=== PATIENT | male | born 1960 | race Caucasian/White ===

== ENCOUNTER → 2019-11-15 13:16 | Outpatient (CLI) | payer BC, SELFPAY ==
[2019-11-16 14:49] LABS: Covid-19 Nasal PCR Sendout Lex Not Detected
== END ==
PROVIDERS: PCP Internal Medicine Adolescent Medicine; Visit Provider Nurse Practitioner
DX: Z03.818 Encounter for observation for suspected exposure to other biological agents ruled out (principal)
CPT/HCPCS: U0004

== ENCOUNTER → 2020-10-19 08:00 | Outpatient (CLI) | payer BC, SELFPAY ==
[2020-10-20 09:07] LABS: Hemoglobin A1C 5.8 % (4.0-6.0)
[2020-10-20 09:12] LABS: Chloride 106 mmol/L (98-107); Potassium 4.5 mmoL/L (3.5-5.1); Sodium 144 mmol/L (136-145)
[2020-10-20 09:14] LABS: Alanine Aminotransferase 26 U/L (12-78); Aspartate Amino Transferase 24 U/L (17-59); Blood Urea Nitrogen 13 mg/dl (9-20); Estimated Glomerular Filt Rate 69 ml/min (>60); GFR (African American) 83 ML/MIN (>60)
[2020-10-20 09:15] LABS: Albumin Level 4.3 g/dl (3.5-5.0); Albumin/Globulin Ratio 1.9 (1.1-1.8); Alkaline Phosphatase 70 U/L (38-126); Anion Gap 15.5 mEq/L (5-15); Bilirubin,Total 1.3 mg/dl (0.2-1.3); Calcium 9.3 mg/dl (8.4-10.2); Carbon Dioxide 27 mmol/L (22.0-30.0); Chol/HDL Ratio 2.6 (1-3.5); Cholesterol 113 mg/dl (140-200); Globulin 2.3 g/dL (1.3-3.2); Glucose 100 mg/dl (74-100); HDL Cholesterol 44 mg/dl (40-60); Total Protein,Serum 6.6 g/dl (6.3-8.2); Triglycerides 66 mg/dl (30-150); VLDL Cholesterol 13 mg/dL (0-40)
[2020-10-20 09:27] LABS: Direct LDL Cholesterol 57.55 mg/dL (100-129)
== END ==
PROVIDERS: Visit Provider Internal Medicine Adolescent Medicine
DX: E11.69 Type 2 diabetes mellitus with other specified complication (principal); I10 Essential (primary) hypertension
CPT/HCPCS: 80053; 80061; 83036

== ENCOUNTER 2021-11-14 21:23 | Emergency (ER) | payer OTHER, SELFPAY ==
[2021-11-14] VITALS (7 sets, daily range): BP systolic 168–209; BP diastolic 93–119; PULSE 74–80; RESP 13–18; TEMP 37.2; O2SAT 96; BMI 31.7
--- NOTE | 2021-11-14 21:30 | ECG_ITS ---
APPROVED REPORT Exam: Resting ECG HR:79 bpm ECG Measurements Heart Rate 79 AXES LA 152 P 49 QRSd 109 QRS -20 QT 383 T 39 QTc 418 Conclusion SINUS RHYTHM INCOMPLETE RIGHT BUNDLE BRANCH BLOCK [90+ ms QRS DURATION, TERMINAL R IN V1/V2, 40+ ms S IN I/aVL/V4/V5/V6] BORDERLINE ECG UNCONFIRMED REPORT Electronically signed by : Freddie Soto MD 11/15/2021 17:17:10
--- NOTE | 2021-11-14 22:02 | XR_ITS ---
PROCEDURE INFORMATION: Exam: XR Abdomen Exam date and time: 11/14/2021 10:07 PM Age: 61 years old Clinical indication: Abdominal pain; Generalized; Additional info: Ruq pain TECHNIQUE: Imaging protocol: Radiologic exam of the abdomen. Views: Frontal supine view of the abdomen. 1 View. COMPARISON: CR XR CHEST AP 11/14/2021 10:06 PM FINDINGS: Gastrointestinal tract: Nonobstructive bowel gas pattern. No abnormal calcifications over either kidney or the expected course of either ureter. Bones/joints: Bony structures appear normal for age. IMPRESSION: No radiographic evidence of obstruction or calculus.
--- NOTE | 2021-11-14 22:02 | XR_ITS ---
PROCEDURE INFORMATION: Exam: XR Chest Exam date and time: 11/14/2021 10:06 PM Age: 61 years old Clinical indication: Pain; Right-sided; Additional info: Ruq pain TECHNIQUE: Imaging protocol: Radiologic exam of the chest. Views: 4 or more views. COMPARISON: No relevant prior studies available. FINDINGS: Lungs: Unremarkable. No consolidation. Pleural spaces: Unremarkable. No pleural effusion. No pneumothorax. Heart/Mediastinum: Unremarkable. No cardiomegaly. Bones/joints: Cervical fusion hardware is partly visualized. IMPRESSION: No acute cardiopulmonary abnormality.
[2021-11-14 22:09] LABS: Basophils # 0.1 K/mm3 (0-0.2); Basophils % 0.4 % (0.1-2.0); Eosinophils # 0.1 K/mm3 (0.0-0.4); Eosinophils % 0.4 % (0.1-12.0); Hematocrit 50.3 % (42.0-52.0); Lymphocytes # 1.4 K/mm3 (0.7-4.5); Lymphocytes % 9.5 % (10-50); Mean Corpuscular HGB Conc 31.8 g/dL (31.8-35.4); Mean Corpuscular Hemoglobin 29.3 pg (27.0-31.2); Mean Corpuscular Volume 92.1 fl (80-94); Mean Platelet Volume 8.3 fl (7.4-10.4); Monocytes % 6.9 % (1.7-9.3); Neutrophils # 12.1 K/mm3 (1.8-7.8); Neutrophils % 82.7 % (37.0-80.0); Platelet Count 262 K/mm3 (142-424); Red Blood Count 5.46 M/mm3 (4.60-6.20); Red Cell Distribution Width 13.5 % (11.5-17.5); White Blood Count 14.6 K/mm3 (4.8-10.8)
[2021-11-14 22:13] LABS: Alanine Aminotransferase 27 U/L (12-78); Albumin Level 4.4 g/dl (3.5-5.0); Albumin/Globulin Ratio 1.5 (1.1-1.8); Alkaline Phosphatase 96 U/L (38-126); Aspartate Amino Transferase 29 U/L (17-59); Blood Urea Nitrogen 11 mg/dl (9-20); Calcium 9.9 mg/dl (8.4-10.2); Carbon Dioxide 28 mmol/L (22.0-30.0); Chloride 102 mmol/L (98-107); Creatinine Clearance Estimated 120 mL/min (50-200); Estimated Glomerular Filt Rate 86 ml/min (>60); GFR (African American) 104 ML/MIN (>60); Globulin 2.9 g/dL (1.3-3.2); Glucose 167 mg/dl (74-100); Lipase 45 U/L (23-300); Total Protein,Serum 7.3 g/dl (6.3-8.2)
[2021-11-14 22:17] LABS: Sodium 136 mmol/L (136-145)
[2021-11-14 23:05] LABS: Troponin I < 0.01 ng/ml (0.00-0.034)
--- NOTE | 2021-11-14 23:23 | PC.NURSE ---
pt responding to labatalol 168/93
[2021-11-14 23:27] LABS: Microscopic, Urine URINE MICROSCOPIC (MICROSCOPIC)
[2021-11-14 23:40] LABS: Appearance,Urine CLEAR (Clear); Bilirubin,Urine Negative (Negative); Blood, Urine TRACE-I (Negative); Color,Urine YELLOW (Yellow); Glucose,Urine (UA) Negative (Negative); Ketones,Urine 1+ (Negative); Leukocyte Esterase,Urine Negative (Negative); Nitrate,Urine Negative (Negative); Protein,Urine TRACE (Negative); Specific Gravity, Urine >= 1.030 (1.005-1.030); Urobilinogen,Urine 0.2 EU/dl (0.2)
[2021-11-14 23:43] LABS: Amorphous Sediment,Urine Trace /lpf; Mucus,Urine Trace /lpf
[2021-11-15] VITALS: BP 166/92; PULSE 71; RESP 21; O2SAT 95
--- NOTE | 2021-11-15 00:23 | HMH.EDGENADL ---
Discharge Plan Disposition Patient Disposition: Home, Self-Care Condition: Good Prescriptions Prescriptions: New pantoprazole 40 mg tablet,delayed release (DR/EC) 40 mg PO DAILY 28 Days Qty: 28 0RF Referrals Follow up/Referrals: Freddie Soto MD [Primary Care Provider] - See instructions Activity Restrictions/Add. Instructions Additional Instructions/Restrictions: Please follow up with your primary care physician in 2-3 days for further managment. Use 40mg of Lisinoprol daily only. Monitor your blood pressure during morning and night and keep a log to bring to your next doctors appointment. Please take tylenol and ibuprofen for pain control. Take over the counter mylanta or maalox if heart burn flares up. Please also take pantaprazole as prescribed. Clinical Impressions Clinical Impression: Abdominal pain, Chronic GERD, Hypertension Instructions Patient Instructions: Essential Hypertension, DI for Acute Abdominal Pain Discharge ED Provider: Ashtyn Coronel Adult HPI General Chief complaint: Abdominal Pain Stated complaint: heartburn, abd pain,no appetite Time Seen by Provider: 11/14/21 21:30 Mode of Arrival: Ambulatory Source of Information: Patient Limitations: No Limitations Description of Symptoms (Recalled from ER Triage Doc. by RN): RUQ pain pt states its 5/10 severe pain pt also states he has been lethargic and not had much of an appitite. pt also has accidentally been taking 80 of lisinopril for 3 weeks and stopped that yesterday. his blood pressure is 209/119 History of Present Illness HPI narrative: Mr. Haider is a 61 yo male w/ PMH for HTN and GERD presenting to the ED for RUQ abd pain 5/10 with reduced appetite over the last week. Patient also reports he has been taking 80mg of lisinopril for the last 3 weeks instead of 40mg accidentally. His blood pressure on arrival 209/119. Patient reports he does not check his blood pressure daily and is not sure what his avg blood pressure is. Patient denies any chest pain, dyspnea. No abdominal pain, N/V, fevers, chills or other infectious like symptoms. Patient on pantaprazole daily has not taken in some time. complaint: RUQ pain Onset (ago): day(s) Location: abdomen Radiation: non-radiation Severity: moderate Severity scale (1-10): 5 Consistency: constant Relieving factors: none Exacerbating factors: none Associated symptoms: denies other symptoms Treatments prior to arrival: none Related Data Previous Rx's Medication Instructions Recorded pantoprazole 40 mg tablet,delayed 40 mg PO DAILY 4 weeks #28 tabs 11/15/21 release Allergies Allergy/AdvReac Type Severity Reaction Status Date / Time No Known Allergies Allergy Verified 11/14/21 22:07 [facility] Social History Smoking Status: Never smoker alcohol intake: former current occupational status: employed Travel in the last 8 weeks: None ROS Obtained: Yes All systems reviewed & no additional complaints except as documented Constitutional Constitutional: Reports system reviewed and no additional complaints, except as documented Eyes Eyes: Reports system reviewed and no additional complaints, except as documented ENT Ears, Nose, Mouth, and Throat: Reports system reviewed and no additional complaints, except as documented Cardiovascular Cardiovascular: Reports system reviewed and no additional complaints, except as documented Respiratory Respiratory: Reports system reviewed and no additional complaints, except as documented Gastrointestinal Gastrointestingal: Reports abdominal pain Musculoskeletal Musculoskeletal: Reports system reviewed and no additional complaints, except as documented Neurologic Neurologic: Reports system reviewed and no additional complaints, except as documented Hematologic/Lymphatic Henatologic/Lymphatic: Reports system reviewed and no additional complaints, except as documented Physical Exam General
[2021-11-15 00:37] VITALS: BP 157/89; PULSE 71; RESP 16; TEMP 37.1; O2SAT 98
== END 2021-11-15 00:40 | disposition home or self-care (01) ==
PROVIDERS: Emergency Provider Student in an Organized Health Care Education/Training Program; PCP Internal Medicine Adolescent Medicine
DX: R10.11 Right upper quadrant pain (principal); K21.9 Gastro-esophageal reflux disease without esophagitis; I10 Essential (primary) hypertension
CPT/HCPCS: 71045; 74018; 80053; 81001; 83690; 84484; 85025; 93005; 96374; 99284

== ENCOUNTER → 2021-11-19 08:17 | Outpatient (CLI) | payer OTHER, SELFPAY ==
--- NOTE | 2021-11-19 08:18 | US_ITS ---
FINAL REPORT CLINICAL HISTORY: possible gallstones FINDINGS: Sonographic images of the right upper quadrant were obtained. The pancreas is partially obscured. The liver has mild increased echogenicity. There is sludge in the gallbladder with nonspecific gallbladder wall thickening. There is no evidence of biliary ductal dilatation.The common duct measures 2 mm. Limited images of the right kidney are unremarkable. IMPRESSION: Sludge in the gallbladder with nonspecific gallbladder wall thickening. If indicated, nuclear medicine hepatobiliary scan could further evaluate. Fatty liver. Reviewed, Interpreted and Dictated by Shen Soria III, MD Transcribed by Sridhar Rvualcaba Authenticated and [facility]
== END ==
PROVIDERS: PCP Family Medicine; Visit Provider Family Medicine
DX: R10.9 Unspecified abdominal pain (principal)
CPT/HCPCS: 76705

== ENCOUNTER → 2021-12-21 07:07 | Outpatient (CLI) | payer OTHER, SELFPAY ==
[2021-12-21 07:25] LABS: Basophils # 0.1 K/mm3 (0-0.2); Basophils % 1.3 % (0.1-2.0); Eosinophils # 0.3 K/mm3 (0.0-0.4); Eosinophils % 4.8 % (0.1-12.0); Hematocrit 44.9 % (42.0-52.0); Hemoglobin 14.8 g/dL (14.1-18.0); Lymphocytes # 1.8 K/mm3 (0.7-4.5); Lymphocytes % 28.9 % (10-50); Mean Corpuscular Hemoglobin 29.8 pg (27.0-31.2); Mean Corpuscular Volume 90.1 fl (80-94); Mean Platelet Volume 7.7 fl (7.4-10.4); Monocytes # 0.4 K/mm3 (0.1-1.0); Monocytes % 6.2 % (1.7-9.3); Neutrophils # 3.6 K/mm3 (1.8-7.8); Neutrophils % 58.8 % (37.0-80.0); Platelet Count 237 K/mm3 (142-424); Red Blood Count 4.98 M/mm3 (4.60-6.20); Red Cell Distribution Width 13.6 % (11.5-17.5); White Blood Count 6.1 K/mm3 (4.8-10.8)
== END ==
PROVIDERS: PCP Family Medicine; Visit Provider Surgery
DX: R10.9 Unspecified abdominal pain (principal)
CPT/HCPCS: 36415; 85025

== ENCOUNTER 2021-12-23 09:04 | Day surgery (SDC) | payer OTHER, SELFPAY ==
[2021-12-23] VITALS (10 sets, daily range): BP systolic 137–160; BP diastolic 83–93; PULSE 68–105; RESP 12–18; TEMP 36.1–38; O2SAT 94–97; BMI 31.7
--- NOTE | 2021-12-23 11:59 | EXP.ANES.CKL ---
[facility] Medical History Diabetes mellitus Gallbladder disease Gallbladder sludge History of cataract History of COVID-19 History of gastroesophageal reflux (GERD) Hyperlipidemia Hypertension Surgical History H/O rotator cuff surgery History of cataract surgery Hx of spinal fusion Social History Smoking Status: Never smoker alcohol intake: never substance use type: denies use current occupational status: employed Travel in the last 8 weeks: None household members: family housing: house lives independently: No marital status: [facility] Anesthesia Checklist Patient Identification Patient Identification: Verbal (Name & ) Structural Data Admitted From: Home Planned Operative Procedure/s: lap kevin Consent for Planned Operative Procedure(s) Verified: Yes NPO Status Verified Time NPO: 00:00 Additional verifications Anesthesia Reactions: No Hx Blood Transfusions: No Airway Assessment C-Spine Mobility Assessed: Yes TMJ Mobility Assessed: Yes Dentition: Good Dentition Neurological Assessment Level of Consciousness: Awake, Alert and Appropriate Anesthesia Plan Anesthesia Risk discussed: Yes Anesthesia Plan: Verified ASA Class: II Anesthesia Type: General
--- NOTE | 2021-12-23 12:59 | EXP.OP.NOTE ---
Date of procedure: 12/23/21 Pre-op Diagnosis:: Acute on chronic calculus cholecystitis Post-op Diagnosis:: Same Procedure performed:: Laparoscopic cholecystectomy Surgeon:: Son Cunha MD CONSOLE OPERATOR:: Navin Winters Anesthesia: GETA Estimated blood loss (mL): 15 Operative findings:: Fairly severe gallbladder distention Significant wall thickening Severe infundibular thickening 1 cm umbilical defect utilized as trocar site Dome down approach utilized secondary to above findings Operative note:: After informed consent was obtained, the patient was taken to the operating room and placed in the supine position. General anesthesia was induced and the abdomen was prepped and draped in a sterile fashion. A small stab incision was made in left upper quadrant. Veress needle was placed in position. The abdomen was insufflated. After infiltration with local anesthetic a curvilinear infraumbilical incision was made. A 12 mm optical trocar was placed in position. Under direct visualization, a 5 mm trocar was placed in the subxiphoid position and 2 additional 5 mm trocars were placed in the right upper quadrant. The gallbladder was elevated up and over the liver margin. Significant wall thickening noted. Infundibular tissue was extremely thickened. The tissue around the cystic duct was carefully dissected. Secondary to tissue thickening the decision was made to proceed with a dome down approach . Harmonic shaila were then utilized to dissect the gallbladder away from the liver margin. Endoloops (x2) were placed at the infundibulum and transection above the site was completed with harmonic shaila. The gallbladder was placed in a retrieval bag and removed through the umbilical trocar site. The right upper quadrant was thoroughly irrigated. No active bleeding or bile leak was noted. Fascia at the umbilical hernia/trocar site was reapproximated utilizing 0 Ethibond. The remaining trocars were removed. All wounds were irrigated and skin was closed with 4-0 Monocryl in an interrupted/mattress fashion to facilitate hemostasis. Dressings were applied and the patient's anesthetic agents were reversed. Extubation was completed prior to transfer to recovery in stable condition. Condition: stable Disposition: PACU Specimens:: Gallbladder Complications:: No immediate
--- NOTE | 2021-12-23 13:08 | EXP.ANES.I ---
[facility] Anesthesia Record Part I Anesthesia Record I Intake, IV Amount: 1,500 Estimated blood loss (mL): 0 Urine output (mL): 0 Blood Pressure: 160/92 SaO2: 94 Pulse Rate: 98 Respiratory Rate: 12 Temperature: 98.6 F Patient is:: Awake and Stable Stable to PACU at:: 13:05
[2021-12-23 13:35] LABS: POC Glucose,Bedside 133 (70-110)
--- NOTE | 2021-12-23 14:34 | SUR.PHASEI ---
LATE ENTRY 1312 BS Obtained with result of 133. katie Morse notified. No new orders at this time. 1332 called and gave detailed report to Ilia Bellamy RN. 1335 transported via stretcher to post op. vital signs stable. no pain reported at this time. left in stable condition with Ilia Bellamy RN at bedside.
--- NOTE | 2021-12-24 08:28 | P.PNANES_ITS ---
[facility] Anesthesia Record Part II Anesthesia Record Part II Discharge Time: 13:25 Destination: Surgical Day Care (OP Surgery) PACU nurse assessment reviewed?: Yes Patient Condition:: Good Anesthesia Complications:: None Swallowing reflex intact?: Yes Cyanosis?: No Blood Pressure: 156/84 Pulse Rate: 87 Temperature: 98.6 F Mental Status: Alert & Oriented Pain level:: 0 Nausea and/or vomitting:: None Intake, IV Amount: 0
[2021-12-24 08:29] VITALS: BP 156/84; PULSE 87; TEMP 37
[2021-12-24 13:22] LABS: POC Glucose,Bedside 108 (70-110)
== END 2021-12-23 14:14 | disposition home or self-care (01) ==
PROVIDERS: PCP Family Medicine; Visit Provider Surgery
PROC: 0FT44ZZ Resection of Gallbladder, Percutaneous Endoscopic Approach (ICD-10-PCS; CPT 47562; principal; 2021-12-23 10:30)
DX: K80.12 Calculus of gallbladder with acute and chronic cholecystitis without obstruction (principal); Z79.899 Other long term (current) drug therapy; K82.9 Disease of gallbladder, unspecified; E11.9 Type 2 diabetes mellitus without complications
CPT/HCPCS: 47562; 82962; J2405; J2710

== ENCOUNTER → 2022-04-18 23:30 | Outpatient (CLI) | payer OTHER, SELFPAY ==
[2022-04-18 17:16] LABS: Alanine Aminotransferase 27 U/L (12-78); Albumin Level 4.3 g/dl (3.5-5.0); Albumin/Globulin Ratio 1.9 (1.1-1.8); Alkaline Phosphatase 77 U/L (38-126); Anion Gap 10.9 mEq/L (5-15); Aspartate Amino Transferase 26 U/L (17-59); Bilirubin,Total 1.2 mg/dl (0.2-1.3); Blood Urea Nitrogen 17 mg/dl (9-20); Calcium 9.2 mg/dl (8.4-10.2); Carbon Dioxide 30 mmol/L (22.0-30.0); Chloride 108 mmol/L (98-107); Chol/HDL Ratio 2.6 (1-3.5); Cholesterol 105 mg/dl (140-200); Estimated Glomerular Filt Rate 68 ml/min (>60); GFR (African American) 82 ML/MIN (>60); Globulin 2.3 g/dL (1.3-3.2); Glucose 116 mg/dl (74-100); HDL Cholesterol 41 mg/dl (40-60); Potassium 4.9 mmoL/L (3.5-5.1); Sodium 144 mmol/L (136-145); Total Protein,Serum 6.6 g/dl (6.3-8.2); Triglycerides 72 mg/dl (30-150); VLDL Cholesterol 14 mg/dL (0-40)
[2022-04-18 17:25] LABS: Basophils # 0.1 K/mm3 (0-0.2); Basophils % 0.9 % (0.1-2.0); Eosinophils # 0.2 K/mm3 (0.0-0.4); Eosinophils % 3.4 % (0.1-12.0); Hematocrit 48.6 % (42.0-52.0); Hemoglobin 15.8 g/dL (14.1-18.0); Lymphocytes # 1.7 K/mm3 (0.7-4.5); Lymphocytes % 27.8 % (10-50); Mean Corpuscular HGB Conc 32.4 g/dL (31.8-35.4); Mean Corpuscular Hemoglobin 29.3 pg (27.0-31.2); Mean Corpuscular Volume 90.3 fl (80-94); Mean Platelet Volume 9.2 fl (7.4-10.4); Monocytes # 0.4 K/mm3 (0.1-1.0); Monocytes % 6.6 % (1.7-9.3); Neutrophils # 3.7 K/mm3 (1.8-7.8); Neutrophils % 61.2 % (37.0-80.0); Platelet Count 257 K/mm3 (142-424); Red Blood Count 5.38 M/mm3 (4.60-6.20); Red Cell Distribution Width 13.6 % (11.5-17.5); White Blood Count 6.1 K/mm3 (4.8-10.8)
[2022-04-18 17:27] LABS: Direct LDL Cholesterol 54.33 mg/dL (100-129)
[2022-04-18 17:46] LABS: Thyroid Stimulating Hormone 1.07 uIU/mL (0.465-4.68)
[2022-04-18 18:08] LABS: Hemoglobin A1C 7.2 % (4.0-6.0)
== END ==
PROVIDERS: PCP Family Medicine; Visit Provider Family Medicine
DX: R53.83 Other fatigue (principal); I10 Essential (primary) hypertension; E11.9 Type 2 diabetes mellitus without complications; Z79.84 Long term (current) use of oral hypoglycemic drugs
CPT/HCPCS: 80053; 80061; 83036; 84443; 85025

== ENCOUNTER → 2022-05-30 23:30 | Outpatient (CLI) | payer OTHER, SELFPAY | PROVIDERS: PCP Family Medicine; Visit Provider Family Medicine | DX: J02.9 Acute pharyngitis, unspecified (principal) | CPT/HCPCS: 87070 ==

== ENCOUNTER → 2022-12-01 23:20 | Outpatient (CLI) | payer OTHER, SELFPAY ==
[2022-12-01 17:04] LABS: Alanine Aminotransferase 38 U/L (12-78); Albumin Level 4.2 g/dl (3.5-5.0); Albumin/Globulin Ratio 1.7 (1.1-1.8); Alkaline Phosphatase 79 U/L (38-126); Anion Gap 14.3 mEq/L (5-15); Aspartate Amino Transferase 30 U/L (17-59); Bilirubin,Total 1.3 mg/dl (0.2-1.3); Blood Urea Nitrogen 13 mg/dl (9-20); Calcium 10.2 mg/dl (8.4-10.2); Carbon Dioxide 33 mmol/L (22.0-30.0); Chloride 99 mmol/L (98-107); Chol/HDL Ratio 3.1 (1-3.5); Cholesterol 111 mg/dl (140-200); Estimated Glomerular Filt Rate 62 ml/min (>60); GFR (African American) 74 ML/MIN (>60); Globulin 2.5 g/dL (1.3-3.2); Glucose 161 mg/dl (74-100); HDL Cholesterol 36 mg/dl (40-60); Potassium 4.3 mmoL/L (3.5-5.1); Sodium 142 mmol/L (136-145); Total Protein,Serum 6.7 g/dl (6.3-8.2); Triglycerides 116 mg/dl (30-150); VLDL Cholesterol 23 mg/dL (0-40)
[2022-12-01 17:09] LABS: Basophils % 0.6 % (0.1-2.0); Eosinophils # 0.3 K/mm3 (0.0-0.4); Eosinophils % 4.8 % (0.1-12.0); Hematocrit 49.6 % (42.0-52.0); Hemoglobin 16.2 g/dL (14.1-18.0); Lymphocytes # 1.6 K/mm3 (0.7-4.5); Lymphocytes % 27.9 % (10-50); Mean Corpuscular HGB Conc 32.7 g/dL (31.8-35.4); Mean Corpuscular Hemoglobin 29.2 pg (27.0-31.2); Mean Corpuscular Volume 89.3 fl (80-94); Mean Platelet Volume 8.7 fl (7.4-10.4); Monocytes # 0.4 K/mm3 (0.1-1.0); Monocytes % 7.4 % (1.7-9.3); Neutrophils # 3.4 K/mm3 (1.8-7.8); Neutrophils % 59.3 % (37.0-80.0); Platelet Count 260 K/mm3 (142-424); Red Blood Count 5.56 M/mm3 (4.60-6.20); Red Cell Distribution Width 13.2 % (11.5-17.5); White Blood Count 5.7 K/mm3 (4.8-10.8)
[2022-12-01 17:28] LABS: Hemoglobin A1C 7.4 % (4.0-6.0)
== END ==
PROVIDERS: PCP Family Medicine; Visit Provider Family Medicine
DX: I10 Essential (primary) hypertension (principal); E78.5 Hyperlipidemia, unspecified; E11.8 Type 2 diabetes mellitus with unspecified complications
CPT/HCPCS: 80053; 80061; 83036; 85025

== ENCOUNTER 2023-04-17 20:04 | Outpatient (CLI) | payer OTHER, SELFPAY ==
[2023-04-17 17:16] LABS: Basophils % 0.5 % (0.1-2.0); Eosinophils # 0.1 K/mm3 (0.0-0.4); Eosinophils % 2.7 % (0.1-12.0); Hematocrit 44.6 % (42.0-52.0); Hemoglobin 15.5 g/dL (14.1-18.0); Lymphocytes # 1.3 K/mm3 (0.7-4.5); Lymphocytes % 25.8 % (10-50); Mean Corpuscular HGB Conc 34.7 g/dL (31.8-35.4); Mean Corpuscular Hemoglobin 30.8 pg (27.0-31.2); Mean Corpuscular Volume 88.7 fl (80-94); Mean Platelet Volume 8.2 fl (7.4-10.4); Monocytes # 0.4 K/mm3 (0.1-1.0); Monocytes % 7.7 % (1.7-9.3); Neutrophils # 3.2 K/mm3 (1.8-7.8); Neutrophils % 63.2 % (37.0-80.0); Platelet Count 203 K/mm3 (142-424); Red Blood Count 5.03 M/mm3 (4.60-6.20); Red Cell Distribution Width 13.5 % (11.5-17.5); White Blood Count 5.1 K/mm3 (4.8-10.8)
[2023-04-17 17:47] LABS: Alanine Aminotransferase 51 U/L (12-78); Albumin/Globulin Ratio 1.7 (1.1-1.8); Alkaline Phosphatase 75 U/L (38-126); Anion Gap 9.8 mEq/L (5-15); Aspartate Amino Transferase 31 U/L (17-59); Bilirubin,Total 0.9 mg/dl (0.2-1.3); Blood Urea Nitrogen 13 mg/dl (9-20); Calcium 9.7 mg/dl (8.4-10.2); Carbon Dioxide 31 mmol/L (22.0-30.0); Chloride 102 mmol/L (98-107); Chol/HDL Ratio 3.7 (1-3.5); Cholesterol 114 mg/dl (140-200); Estimated Glomerular Filt Rate 68 ml/min (>60); GFR (African American) 82 ML/MIN (>60); Globulin 2.3 g/dL (1.3-3.2); Glucose 156 mg/dl (74-100); HDL Cholesterol 31 mg/dl (40-60); Potassium 3.8 mmoL/L (3.5-5.1); Sodium 139 mmol/L (136-145); Total Protein,Serum 6.3 g/dl (6.3-8.2); Triglycerides 108 mg/dl (30-150); VLDL Cholesterol 22 mg/dL (0-40)
[2023-04-17 18:00] LABS: Direct LDL Cholesterol 63.12 mg/dL (100-129)
[2023-04-17 18:21] LABS: Prostate Specific Ag Screen 4.1 ng/ml (0.0-4.0); Thyroid Stimulating Hormone 1.69 uIU/mL (0.465-4.68)
== END 2023-04-17 23:59 ==
LOC: LAB.DROPOF 20:04
PROVIDERS: PCP Family Medicine; Visit Provider Family Medicine
DX: I10 Essential (primary) hypertension (principal); E11.9 Type 2 diabetes mellitus without complications; R53.83 Other fatigue; Z79.899 Other long term (current) drug therapy; Z12.5 Encounter for screening for malignant neoplasm of prostate
CPT/HCPCS: 80053; 80061; 83036; 84443; 85025; G0103

== ENCOUNTER 2023-06-26 11:30 | Outpatient (CLI) | payer OTHER, SELFPAY ==
[2023-06-26 17:07] LABS: Chloride 106 mmol/L (98-107); Potassium 3.9 mmoL/L (3.5-5.1); Sodium 142 mmol/L (136-145)
[2023-06-26 17:10] LABS: Anion Gap 8.9 mEq/L (5-15); Blood Urea Nitrogen 21 mg/dl (9-20); Calcium 9.8 mg/dl (8.4-10.2); Carbon Dioxide 31 mmol/L (22.0-30.0); Estimated Glomerular Filt Rate 56 ml/min (>60); GFR (African American) 68 ML/MIN (>60); Glucose 164 mg/dl (74-100)
== END 2023-06-26 23:59 ==
LOC: LAB.DROPOF 06-27 11:30
PROVIDERS: PCP Family Medicine; Visit Provider Family Medicine
DX: R60.0 Localized edema (principal)
CPT/HCPCS: 80048

== ENCOUNTER 2023-06-27 07:54 | Outpatient (CLI) | payer OTHER, SELFPAY ==
--- NOTE | 2023-06-27 07:54 | MR_ITS ---
FINAL REPORT CLINICAL HISTORY: Left Parotid Swelling COMPARISON: None FINDINGS: Multiplanar MR imaging of the brain was performed without and with contrast. There is no evidence of intracranial hemorrhage or mass. No abnormal extra-axial fluid collection is seen. The ventricular size is within normal limits. There is no evidence of shift of the midline structures. The posterior fossa and brainstem have an unremarkable appearance. No area of abnormal restricted diffusion is identified. No abnormal contrast enhancement is seen. Normal major vessel vascular flow voids are noted. There are no areas of abnormal signal involving the parotid glands. The glands themselves appear slightly full, the right gland slightly larger than the left parotid gland. IMPRESSION: No acute intracranial abnormality identified. No areas of abnormal signal or mass are identified in either parotid gland. Reviewed, Interpreted and Dictated by Dmitry Garza MD Transcribed by Bettina Parisi Authenticated and [facility]
[2023-06-27] MEDS: SODIUM CHLORIDE 0.9% 10ML SYR (RAD ONLY) 10 ML IV (08:52)
[2023-06-27] MEDS: GADOTERIDOL INJ 17ML SYRINGE 20 ML IV (08:52)
== END 2023-06-27 23:59 | disposition home or self-care (01) ==
LOC: RAD 07:54
PROVIDERS: PCP Family Medicine; Visit Provider Nurse Practitioner
DX: R60.0 Localized edema (principal)
CPT/HCPCS: 70553; A9576

== ENCOUNTER 2023-07-03 16:50 | Outpatient (CLI) | payer OTHER, SELFPAY ==
[2023-07-03 17:56] LABS: Chloride 105 mmol/L (98-107); Potassium 4.1 mmoL/L (3.5-5.1); Sodium 140 mmol/L (136-145)
[2023-07-03 17:59] LABS: Anion Gap 8.1 mEq/L (5-15); Blood Urea Nitrogen 18 mg/dl (9-20); Carbon Dioxide 31 mmol/L (22.0-30.0); Estimated Glomerular Filt Rate 61 ml/min (>60); GFR (African American) 74 ML/MIN (>60); Glucose 130 mg/dl (74-100)
== END 2023-07-03 23:59 | disposition home or self-care (01) ==
LOC: LAB 16:52
PROVIDERS: PCP Family Medicine; Visit Provider Family Medicine
DX: I10 Essential (primary) hypertension (principal)
CPT/HCPCS: 80048

== ENCOUNTER 2023-10-10 09:48 | Outpatient (CLI) | payer BC, SELFPAY ==
--- NOTE | 2023-10-10 09:58 | XR_ITS ---
FINAL REPORT TECHNIQUE: 5 views CLINICAL HISTORY: Back pain states back pain while walking down stairs COMPARISON: None FINDINGS: There is no fracture present. There is no malalignment. There is extensive facet sclerosis in the lower lumbar spine. Multilevel small anterior osteophytes are present as well. IMPRESSION: No acute process. Reviewed, Interpreted and Dictated by Dmitry Garza MD Transcribed by Bettina Parisi Authenticated and [facility]
== END 2023-10-10 23:59 | disposition home or self-care (01) ==
PROVIDERS: PCP Family Medicine; Visit Provider Nurse Practitioner Family
DX: M54.9 Dorsalgia, unspecified (principal)
CPT/HCPCS: 72110

== ENCOUNTER 2023-10-11 16:42 | Outpatient (CLI) | payer BC, SELFPAY ==
[2023-10-11 16:58] LABS: Basophils % 0.8 % (0.1-2.0); Eosinophils # 0.2 K/mm3 (0.0-0.4); Eosinophils % 4.1 % (0.1-12.0); Hematocrit 49.1 % (42.0-52.0); Hemoglobin 16.7 g/dL (14.1-18.0); Lymphocytes # 1.5 K/mm3 (0.7-4.5); Mean Corpuscular HGB Conc 34.1 g/dL (31.8-35.4); Mean Corpuscular Hemoglobin 31.8 pg (27.0-31.2); Mean Corpuscular Volume 93.2 fl (80-94); Mean Platelet Volume 8.8 fl (7.4-10.4); Monocytes # 0.4 K/mm3 (0.1-1.0); Monocytes % 7.7 % (1.7-9.3); Neutrophils # 2.8 K/mm3 (1.8-7.8); Neutrophils % 57.4 % (37.0-80.0); Platelet Count 203 K/mm3 (142-424); Red Blood Count 5.27 M/mm3 (4.60-6.20); Red Cell Distribution Width 14.1 % (11.5-17.5); White Blood Count 4.9 K/mm3 (4.8-10.8)
[2023-10-11 17:51] LABS: Alanine Aminotransferase 42 U/L (12-78); Albumin Level 4.1 g/dl (3.5-5.0); Albumin/Globulin Ratio 1.6 (1.1-1.8); Alkaline Phosphatase 72 U/L (38-126); Anion Gap 10.6 mEq/L (5-15); Aspartate Amino Transferase 31 U/L (17-59); Bilirubin,Total 1.4 mg/dl (0.2-1.3); Blood Urea Nitrogen 22 mg/dl (9-20); Calcium 9.8 mg/dl (8.4-10.2); Carbon Dioxide 31 mmol/L (22.0-30.0); Chloride 103 mmol/L (98-107); Cholesterol 127 mg/dl (140-200); Estimated Glomerular Filt Rate 68 ml/min (>60); GFR (African American) 82 ML/MIN (>60); Globulin 2.6 g/dL (1.3-3.2); Glucose 123 mg/dl (74-100); HDL Cholesterol 42 mg/dl (40-60); Potassium 3.6 mmoL/L (3.5-5.1); Sodium 141 mmol/L (136-145); Total Protein,Serum 6.7 g/dl (6.3-8.2); Triglycerides 110 mg/dl (30-150); VLDL Cholesterol 22 mg/dL (0-40)
[2023-10-11 18:03] LABS: Direct LDL Cholesterol 58.14 mg/dL (100-129)
[2023-10-11 18:23] LABS: Thyroid Stimulating Hormone 1.59 uIU/mL (0.465-4.68)
[2023-10-11 20:38] LABS: Creatinine,Urine Random 101 mg/dL (Not Estab.)
[2023-10-11 21:21] LABS: Hemoglobin A1C 6.4 % (4.0-6.0)
[2023-10-12 10:52] LABS: Prostate Specific Ag Screen 5.1 ng/ml (0.0-4.0)
== END 2023-10-11 23:59 | disposition home or self-care (01) ==
LOC: LAB.DROPOF 16:43
PROVIDERS: PCP Nurse Practitioner Family; Visit Provider Nurse Practitioner Family
DX: E11.9 Type 2 diabetes mellitus without complications (principal); E78.5 Hyperlipidemia, unspecified; I10 Essential (primary) hypertension; Z79.85 Long-term (current) use of injectable non-insulin antidiabetic drugs
CPT/HCPCS: 80050; 80053; 80061; 82043; 82570; 83036; 84443; 85025; G0103

== ENCOUNTER 2023-11-09 08:50 | Outpatient (POV) | payer BC, SELFPAY ==
--- NOTE | 2023-11-09 09:04 | EXP.PAIN.OV ---
HPI Data of Consult Patient: new to practice Consult date: 11/09/23 Requesting Physician: Ela Russo APRN Primary Care Provider: John Paez MD Consult Narrative Reason for consult: Bilateral hip pain, buttocks pain History of present illness: Mr. Haider is a 63 year old male who presents today as a new patient. He is a referral from Anthony Coronel's office. Today he rates his pain a 6 out of 10. Patient states he has pain throughout his bilateral hips and buttocks area and states this has been going on at least a couple of months. He does describe it as a sharp sensation that is worse with increased walking or going downstairs. He does state the pain interferes with his ability perform activities of daily living such as cooking and cleaning. Patient has tried oral medications such as Tylenol and ibuprofen along with heat and ice and topicals with minimal relief. Patient has also been working with physical therapy and doing daily exercise and stretching that does state that it helps some. He continues to do these physician guided exercises at home for longer than the last 6 weeks.Patient is not on any scheduled medications. His Aaron has been reviewed and is appropriate. CC: Ela Russo APRN [facility] Disclaimer: The information contained in this section may have been updated after the patient was seen, as this information can be updated by other users. Medical History Swelling of left parotid gland Sialadenitis Pharyngitis Family history of coronary artery disease Chronic cholecystitis History of COVID-19 History of gastroesophageal reflux (GERD) Gallbladder disease History of cataract Hypertension Gallbladder sludge Hyperlipidemia Diabetes mellitus Chronic GERD Abdominal pain Surgical History History of laparoscopic cholecystectomy History of cataract surgery Hx of spinal fusion H/O rotator cuff surgery Social History Smoking Status: Never smoker alcohol intake: never substance use type: denies use current occupational status: employed Travel in the last 8 weeks: None household members: family housing: house lives independently: No marital status: Review of Systems Review of Systems Review of systems:: pertinent systems reviewed and negative unless documented below Review of systems (narrative): Review of Systems: General: No recent weight changes, no fever, no sleep disturbances Respiratory: No cough, no shortness of air, no recurring pulmonary infections Cardiovascular/peripheral vascular: No chest pain, no palpitations, no edema, no shortness of breath Gastrointestinal: No new onset incontinence, normal bowel movements reported Genitourinary: No new onset incontinence Musculoskeletal: Bilateral hip pain, buttocks pain Psychiatric: [Normal mood/affect] Neurological: [Denies weakness in extremities], [denies balance issues] Meds Home Medications and Allergies Home Medications ?Medication ?Instructions ?Recorded ?Confirmed ?Type pen needle, diabetic 32 gauge x #10 ea 11/07/22 10/23/23 Rx 5/32 (Easy Comfort Pen [place]) hydrochlorothiazide 25 mg tablet 25 mg PO DAILY 90 days #90 tabs 04/17/23 11/09/23 Rx pantoprazole 40 mg tablet,delayed 40 mg PO DAILY Reflux/Acid reflux 04/17/23 11/09/23 Rx release 90 days #90 tabs rosuvastatin 20 mg tablet See Rx Instructions .Route 04/17/23 11/09/23 Rx .COMPLEX #90 tabs terazosin 2 mg capsule 2 mg PO DAILY blood pressure #90 04/17/23 11/09/23 Rx caps empagliflozin 25 mg tablet 25 mg PO DAILY #90 tabs 06/16/23 11/09/23 Rx (Jardiance) semaglutide 0.25 mg or 0.5 mg (2 0.5 mg (0.736 mL) SQ WEEKLY 30 09/12/23 11/09/23 Rx mg/3 mL) subcutaneous pen injector days #3.68 mL (Ozempic) methocarbamol 750 mg tablet 750 mg PO TID #90 tabs 10/27/23 11/09/23 Rx New Prescriptions to Start Prescriptions: Allergies Allergy/AdvReac Type Severity Reaction Status Date / Time No Known Allergies Allergy Verified 10/23/23 09:38 Objective Narrative: Physical Exam: General: Alert and oriented x3, no acute distress, pleasant and cooperative Lungs: Respirations even and unlabored, symmetrical chest expansion Eyes: PERRL Musculoskeletal: Flexion and extension of lumbar [spine] somewhat guarded secondary to pain, [antalgic gait noted] point tenderness along bilateral SIs with positive bilateral Stephanie's, Gerardo's, Gaenslen's, compression and distraction exam Neurological: Speech clear, no gross sensory deficit Additional findings Additional findings: FINDINGS: There is no fracture present. There is no malalignment. There is extensive facet sclerosis in the lower lumbar spine. Multilevel small anterior osteophytes are present as well. IMPRESSION: No acute process. Reviewed, Interpreted and Dictated by Dmitry Garza MD Transcribed by Bettina Parisi Authenticated and . [facility] Assessment and Plan *Assessment and plan (1) Bilateral sacroiliitis: Status: Acute Category: Medical Code(s): M46.1 - Sacroiliitis, not elsewhere classified (2) Bilateral hip pain: Status: Acute Category: Medical Code(s): M25.551 - Pain in right hip; M25.552 - Pain in left hip Plan Patient is experiencing worsening pain in his bilateral hips and buttocks area with limited range of motion of his lumbar spine. He did have some point tenderness along his bilateral SIs with positive bilateral Stephanie's, Gerardo's, Gaenslen's, compression and distraction exam. I did discuss with the patient that he may benefit from bilateral SI injections. Risk and benefits were reviewed with the patient and he would like to proceed forward with this plan of care. I will also order the patient a compounded cream. Patient has tried and failed conservative therapy including continued at home stretching exercise for longer than 6 weeks. Patient will be scheduled for bilateral SI injections under fluoroscopy. Patient has been instructed to contact the clinic with any concerns before the next appointment. Dr. Lane has reviewed this note and agrees with this plan of care. This note was dictated using voice recognition software and make contain errors or omissions. All injections are used with Lidocaine or Bupivacaine and Depo Medrol.
[2023-11-09 09:13] VITALS: BP 120/69; PULSE 70; RESP 16; O2SAT 97; BMI 29.5
== END 2023-11-09 23:59 | disposition home or self-care (01) ==
LOC: SC.PAIN 08:52
PROVIDERS: PCP Family Medicine; Visit Provider Nurse Practitioner Family
DX: M46.1 Sacroiliitis, not elsewhere classified (principal); M25.551 Pain in right hip; M25.552 Pain in left hip; Z73.89 Other problems related to life management difficulty
CPT/HCPCS: 99202; G0463

== ENCOUNTER 2023-11-10 20:02 | Outpatient (CLI) | payer BC, SELFPAY | END 2023-11-10 23:59 | disposition home or self-care (01) | LOC: LAB.DROPOF 20:07 | PROVIDERS: PCP Urology; Visit Provider Urology | DX: R97.20 Elevated prostate specific antigen [PSA] (principal) | CPT/HCPCS: 84153 ==

== ENCOUNTER 2023-11-28 08:21 | Day surgery (SDC) | payer BC, SELFPAY ==
[2023-11-28 08:49] VITALS: BP 105/68; PULSE 73; RESP 16; TEMP 36.5; O2SAT 99; BMI 29.5
[2023-11-28 09:04] VITALS: BP 127/72; PULSE 63; RESP 18; O2SAT 95
[2023-11-28] MEDS: LIDOCAINE 1% 5ML PF VIAL 5 ML (09:04)
[2023-11-28] MEDS: methylPREDNISolone ACETATE 80MG/ML VIAL 80 MG (09:04)
[2023-11-28] MEDS: BUPIVACAINE 0.25% 10ML INJ 25 MG IJ (09:04)
[2023-11-28 09:05] VITALS: BP 127/72; PULSE 61; RESP 18; O2SAT 95
[2023-11-28 09:20] VITALS: BP 107/66; PULSE 64; RESP 18; O2SAT 97
--- NOTE | 2023-11-28 09:29 | P.PCN_ITS ---
Procedure Date: 11/28/23 Time: 08:45 Anesthesiologist:: Joseph Campbell CRNA Complications:: None Pre-procedure Diagnosis:: Bilateral sacroiliitis Post-procedure Diagnosis:: Same Indications for Procedure:: Patient is a pleasant 63-year-old male who comes our clinic today for bilateral sacroiliac joint injections of cortisone and local anesthetic. He describes low lumbar back pain off the midline bilaterally. Bilateral posterior hip pain. Difficulty transitioning from sitting to standing. Difficulty going down steps due to pain intensifying. He rates his pain 8/10. Procedure Details:: Procedure: Bilateral sacroiliac joint injections under fluoroscopy Informed consent was obtained and the risks and benefits of the procedure were explained to the patient.~ The patient was taken to the procedure room and noninvasive monitors were placed including a noninvasive blood pressure cuff and pulse oximeter.~ The patient was placed prone on the procedure table. Both hips were cleansed using Betadine as a cleansing solution. C-arm fluoroscopy was used to view the right sacroiliac joint.~ The skin and subcutaneous tissues were anesthetized using lidocaine 1.5% and a 25-gauge needle.~ After this, a 22-gauge spinal needle was inserted under fluoroscopic guidance into the inferior aspect of the right sacroiliac joint.~ Omnipaque dye was injected and good spread was seen throughout the joint.~ After this, approximately 5 mL of bupivacaine, 0.25% and Depo-Medrol, 40 mg was incrementally injected into the right sacroiliac joint. We then moved to the left sacroiliac joint.~ The skin and subcutaneous tissues were anesthetized using lidocaine 1.5% and a 25-gauge needle.~ After this, a 22- gauge spinal needle was inserted under fluoroscopic guidance into the inferior aspect of the left sacroiliac joint.~ Omnipaque dye was injected and good spread was seen throughout the joint. After this, approximately 5 mL of bupivacaine, 0.25% and Depo-Medrol, 40 mg was incrementally injected into the left sacroiliac joint.~ The patient tolerated the procedure well with no complications. The patient was observed in the Pain Clinic and then was discharged home neurologically intact. Plan and Disposition:: Patient was discharged without incident.
== END 2023-11-28 09:20 | disposition home or self-care (01) ==
LOC: SC.PAINP 08:22
PROVIDERS: PCP Family Medicine; Visit Provider Nurse Anesthetist, Certified Registered
DX: M46.1 Sacroiliitis, not elsewhere classified (principal)
CPT/HCPCS: 27096; G0260; J1010

== ENCOUNTER 2023-12-25 08:49 | Outpatient (POV) | payer BC, SELFPAY ==
[2023-12-25 09:02] VITALS: BP 121/74; PULSE 72; RESP 18; O2SAT 97; BMI 29.5
--- NOTE | 2023-12-25 09:27 | A.OFFVIS_ITS ---
[facility] Disclaimer: The information contained in this section may have been updated after the patient was seen, as this information can be updated by other users. Medical History Swelling of left parotid gland Sialadenitis Pharyngitis Family history of coronary artery disease Chronic cholecystitis History of COVID-19 History of gastroesophageal reflux (GERD) Gallbladder disease History of cataract Hypertension Gallbladder sludge Hyperlipidemia Diabetes mellitus Chronic GERD Abdominal pain Surgical History History of laparoscopic cholecystectomy History of cataract surgery Hx of spinal fusion H/O rotator cuff surgery Social History Smoking Status: Never smoker alcohol intake: never substance use type: denies use current occupational status: employed Travel in the last 8 weeks: None household members: family housing: house lives independently: No marital status: PM Subjective & Objective Subjective Subjective:: Patient is a pleasant 63-year-old male who presents today for follow-up of bilateral SI injections on 11/28/2023. Today he rates his pain a 3 out of 10. Patient denies any new changes or injuries. He does state that these injections did significantly improve his overall symptoms. He states he has had at least 80% however it did seem like it took a couple weeks for it to really fully kick in. Patient states he has been able to move around easier with overall decreased pain and feels much more functional. Patient even states over the last 3 days he is really not even noticed the pain present. He did end up getting the compounded cream and states that he tried to use it 2 different occasions and had a feeling of nauseousness. Patient has discontinued this medication. His Aaron has been reviewed and is appropriate. Review of Systems: General: No recent weight changes, no fever, no sleep disturbances Respiratory: No cough, no shortness of air, no recurring pulmonary infections Cardiovascular/peripheral vascular: No chest pain, no palpitations, no edema, no shortness of breath Gastrointestinal: No new onset incontinence, normal bowel movements reported Genitourinary: No new onset incontinence Musculoskeletal: Low back pain Psychiatric: [Normal mood/affect] Neurological: [Denies weakness in extremities], [denies balance issues] Pain at rest (0-10 scale): 3 Objective Objective:: Physical Exam: General: Alert and oriented x3, no acute distress, pleasant and cooperative Lungs: Respirations even and unlabored, symmetrical chest expansion Eyes: PERRL Musculoskeletal: Flexion and extension of lumbar [spine] somewhat guarded secondary to pain Neurological: Speech clear, no gross sensory deficit Has patient had previous pain injection?: Yes Percent improvement in pain since last injection: 80% Conservative treatment options previously tried: Home exercise plan Length of treatment: Longer than 6 weeks Meds Home Medications and Allergies Home Medications ?Medication ?Instructions ?Recorded ?Confirmed ?Type pen needle, diabetic 32 gauge x #10 ea 11/07/22 12/25/23 Rx (Easy Comfort Pen [place]) hydrochlorothiazide 25 mg tablet 25 mg PO DAILY 90 days #90 tabs 04/17/23 12/25/23 Rx pantoprazole 40 mg tablet,delayed 40 mg PO DAILY Reflux/Acid reflux 04/17/23 12/25/23 Rx release 90 days #90 tabs rosuvastatin 20 mg tablet See Rx Instructions .Route 04/17/23 12/25/23 Rx .COMPLEX #90 tabs terazosin 2 mg capsule 2 mg PO DAILY blood pressure #90 04/17/23 12/25/23 Rx caps empagliflozin 25 mg tablet 25 mg PO DAILY #90 tabs 06/16/23 12/25/23 Rx (Jardiance) semaglutide 0.25 mg or 0.5 mg (2 0.5 mg (0.736 mL) SQ WEEKLY 30 09/12/23 12/25/23 Rx mg/3 mL) subcutaneous pen injector days #3.68 mL (Ozempic) methocarbamol 750 mg tablet 750 mg PO TID #90 tabs 10/27/23 12/25/23 Rx New Prescriptions to Start Prescriptions: Allergies Allergy/AdvReac Type Severity Reaction Status Date / Time No Known Allergies Allergy Verified 11/10/23 08:21 Assessment and Plan *Assessment and plan (1) Low back pain: Status: Acute Category: Medical Code(s): M54.50 - Low back pain, unspecified Plan Patient has had significant improvement following his SI injections and does not require any additional injection therapy at this time. Patient will return to clinic in 3 months for reevaluation of symptoms and plan of care. Patient has been instructed to contact the clinic with any concerns before the next appointment. Dr. Lane has reviewed this note and agrees with this plan of care. This note was dictated using voice recognition software and make contain errors or omissions. All injections are used with Lidocaine or Bupivacaine and Depo Medrol.
== END 2023-12-25 23:59 | disposition home or self-care (01) ==
LOC: SC.PAIN 08:50
PROVIDERS: PCP Family Medicine; Visit Provider Nurse Practitioner Family
DX: M54.50 Low back pain, unspecified (principal)
CPT/HCPCS: 99212; G0463

== ENCOUNTER 2024-04-03 11:03 | Outpatient (POV) | payer BC, SELFPAY ==
--- NOTE | 2024-04-03 11:24 | A.OFFVIS_ITS ---
[facility] Disclaimer: The information contained in this section may have been updated after the patient was seen, as this information can be updated by other users. Medical History Swelling of left parotid gland Sialadenitis Pharyngitis Family history of coronary artery disease Chronic cholecystitis History of COVID-19 History of gastroesophageal reflux (GERD) Gallbladder disease History of cataract Hypertension Gallbladder sludge Hyperlipidemia Diabetes mellitus Chronic GERD Abdominal pain Surgical History History of laparoscopic cholecystectomy History of cataract surgery Hx of spinal fusion H/O rotator cuff surgery Social History Smoking Status: Never smoker alcohol intake: never substance use type: denies use current occupational status: employed Travel in the last 8 weeks: None household members: family housing: house lives independently: No marital status: PM Subjective & Objective Subjective Subjective:: Patient is a pleasant 64-year-old male who presents today for worsening pain. He does state right now it is not bothering him as much however with any type of increased activity his pain will go to a 7 or 8 out of 10. He states it is all across his low back going into his bilateral hips. Patient states that he has been doing physical therapy and doing a lot of exercises including bicycling and it does seem to flareup that same pain. Patient denies any new falls or injuries. Patient did previously have SI injections back in November that did provide 80% relief and feels like it just now started to really bother him over the last week or so. Patient does state he would like to see about additional injections because they did work so well and give improved function with decreased pain. Patient states the current symptoms are a sharp stabbing sensation and does interfere with all activities of daily living such as cooking and cleaning when they start. Patient has continued his conservative treatment. Patient was tried on compounded cream however it did cause stomach upset. He states he does use a cream that is called Vudoo and that it does seem to help however causes significant burning sensations for about 30 minutes. His Aaron has been reviewed and is appropriate. Review of Systems: General: No recent weight changes, no fever, no sleep disturbances Respiratory: No cough, no shortness of air, no recurring pulmonary infections Cardiovascular/peripheral vascular: No chest pain, no palpitations, no edema, no shortness of breath Gastrointestinal: No new onset incontinence, normal bowel movements reported Genitourinary: No new onset incontinence Musculoskeletal: Low back pain, bilateral hip pain Psychiatric: [Normal mood/affect] Neurological: [Denies weakness in extremities], [denies balance issues] Pain at rest (0-10 scale): 7 Objective Objective:: Physical Exam: General: Alert and oriented x3, no acute distress, pleasant and cooperative Lungs: Respirations even and unlabored, symmetrical chest expansion Eyes: PERRL Musculoskeletal: Flexion and extension of lumbar [spine] somewhat guarded secondary to pain, [antalgic gait noted] point tenderness along bilateral SIs with positive bilateral Stephanie's, Gerardo's, Gaenslen's, compression and distraction exam Neurological: Speech clear, no gross sensory deficit Has patient had previous pain injection?: No Conservative treatment options previously tried: Home exercise plan Length of treatment: Longer than 12 weeks and Physical Therapy Length of treatment: Longer than 6 Meds Home Medications and Allergies Home Medications ?Medication ?Instructions ?Recorded ?Confirmed ?Type pen needle, diabetic 32 gauge x #10 ea 11/07/22 12/25/23 Rx (Easy Comfort Pen [place]) empagliflozin 25 mg tablet See Rx Instructions .Route 03/28/24 03/28/24 Rx (Jardiance) .COMPLEX #90 tabs methocarbamol 750 mg tablet 750 mg PO TID #90 tabs 03/28/24 03/28/24 Rx pantoprazole 40 mg tablet,delayed 40 mg PO DAILY Reflux/Acid reflux 03/28/24 03/28/24 Rx release 90 days #90 tabs rosuvastatin 20 mg tablet See Rx Instructions .Route 03/28/24 03/28/24 Rx .COMPLEX #90 tabs semaglutide 0.25 mg or 0.5 mg (2 0.5 mg (0.736 mL) SQ WEEKLY 30 03/28/24 03/28/24 Rx mg/3 mL) subcutaneous pen injector days #3.68 mL (Ozempic) terazosin 2 mg capsule 2 mg PO DAILY blood pressure #90 03/28/24 03/28/24 Rx caps New Prescriptions to Start Prescriptions: Allergies Allergy/AdvReac Type Severity Reaction Status Date / Time No Known Allergies Allergy Verified 03/28/24 08:57 Assessment and Plan *Assessment and plan (1) Bilateral sacroiliitis: Status: Acute Category: Medical Code(s): M46.1 - Sacroiliitis, not elsewhere classified (2) Bilateral hip pain: Status: Acute Category: Medical Code(s): M25.551 - Pain in right hip; M25.552 - Pain in left hip Plan Patient is experiencing worsening pain in his low back and bilateral hips. Patient had limited range of motion of his lumbar spine with point tenderness along his bilateral SI joints and a positive bilateral Stephanie's, Gerardo's, Gaenslen's, compression and distraction exam. I did review over the risk and benefits of repeat SI injection. Patient would like to proceed forward with this plan of care. Patient has tried and failed conservative therapy including continued at home stretching and exercise for longer than 12 weeks that was physician guided. Patient had his last SI injection back in November that did provide 80% relief and lasted longer than 3 months. Patient does have a history of chronic sacroiliitis. Patient will be scheduled for bilateral SI injections under fluoroscopy. Patient has been instructed to contact the clinic with any concerns before the next appointment. Dr. Lane has reviewed this note and agrees with this plan of care. This note was dictated using voice recognition software and make contain errors or omissions. All injections are used with Lidocaine, Bupivacaine and Depo Medrol. Occasionally urine drug screen is needed to verify patient's compliance with our office pain contract. This is ordered based off specific treatments related to chronic pain with the potential to abuse certain medications.
[2024-04-03 13:38] VITALS: BP 142/84; PULSE 75; RESP 16; O2SAT 98; BMI 30.2
== END 2024-04-03 23:59 | disposition home or self-care (01) ==
LOC: SC.PAIN 11:04
PROVIDERS: PCP Family Medicine; Visit Provider Nurse Practitioner Family
DX: M46.1 Sacroiliitis, not elsewhere classified (principal); M25.551 Pain in right hip; M25.552 Pain in left hip; Z73.89 Other problems related to life management difficulty; Z79.85 Long-term (current) use of injectable non-insulin antidiabetic drugs; Z79.84 Long term (current) use of oral hypoglycemic drugs
CPT/HCPCS: 99212; G0463

== ENCOUNTER 2024-04-16 10:58 | Day surgery (SDC) | payer BC, SELFPAY ==
[2024-04-16 11:13] VITALS: BP 145/85; PULSE 79; RESP 16; TEMP 36.9; O2SAT 95; BMI 29.5
--- NOTE | 2024-04-16 11:36 | P.PCN_ITS ---
Procedure Date: 04/16/24 Time: 11:32 Anesthesiologist:: Joseph Campbell CRNA Complications:: None Pre-procedure Diagnosis:: Bilateral sacroiliitis Post-procedure Diagnosis:: Same Indications for Procedure:: Is a pleasant 64-year-old male who comes our clinic today for bilateral sacroiliac joint injections cortisone and local anesthetic. Patient describes low lumbar back pain off the midline bilaterally. Also bilateral posterior hip pain. Patient reports having difficulty transitioning from sitting to standing. He rates his pain 7/10. Procedure Details:: Procedure: Bilateral sacroiliac joint injections under fluoroscopy Informed consent was obtained and the risks and benefits of the procedure were explained to the patient.~ The patient was taken to the procedure room and noninvasive monitors were placed including a noninvasive blood pressure cuff and pulse oximeter.~ The patient was placed prone on the procedure table. Both hips were cleansed using Betadine as a cleansing solution. C-arm fluoroscopy was used to view the right sacroiliac joint.~ The skin and subcutaneous tissues were anesthetized using lidocaine 1.5% and a 25-gauge needle.~ After this, a 22-gauge spinal needle was inserted under fluoroscopic guidance into the inferior aspect of the right sacroiliac joint.~ Omnipaque dye was injected and good spread was seen throughout the joint.~ After this, approximately 5 mL of bupivacaine, 0.25% and Depo-Medrol, 40 mg was incrementally injected into the right sacroiliac joint. We then moved to the left sacroiliac joint.~ The skin and subcutaneous tissues were anesthetized using lidocaine 1.5% and a 25-gauge needle.~ After this, a 22- gauge spinal needle was inserted under fluoroscopic guidance into the inferior aspect of the left sacroiliac joint.~ Omnipaque dye was injected and good spread was seen throughout the joint. After this, approximately 5 mL of bupivacaine, 0.25% and Depo-Medrol, 40 mg was incrementally injected into the left sacroiliac joint.~ The patient tolerated the procedure well with no complications. The patient was observed in the Pain Clinic and then was discharged home neurologically intact. Plan and Disposition:: Patient was discharged without incident.
[2024-04-16] MEDS: methylPREDNISolone ACETATE 80MG/ML VIAL 80 MG (11:45)
[2024-04-16] MEDS: LIDOCAINE 1% 5ML PF VIAL 5 ML (11:45)
[2024-04-16] MEDS: BUPIVACAINE 0.25% 10ML INJ 25 MG IJ (11:45)
[2024-04-16 11:46] VITALS: BP 147/86; PULSE 73; RESP 18; O2SAT 99
[2024-04-16 11:50] VITALS: BP 138/85; PULSE 82; RESP 16; O2SAT 97
== END 2024-04-16 11:50 | disposition home or self-care (01) ==
PROVIDERS: PCP Family Medicine; Visit Provider Nurse Anesthetist, Certified Registered
DX: M46.1 Sacroiliitis, not elsewhere classified (principal)
CPT/HCPCS: 27096; G0260; J1010

== ENCOUNTER 2024-05-09 13:00 | Outpatient (POV) | payer BC, SELFPAY ==
[2024-05-09 13:21] VITALS: BP 146/85; PULSE 75; RESP 14; O2SAT 98; BMI 29.5
--- NOTE | 2024-05-09 13:24 | A.OFFVIS_ITS ---
[facility] Disclaimer: The information contained in this section may have been updated after the patient was seen, as this information can be updated by other users. Medical History Swelling of left parotid gland Sialadenitis Pharyngitis Family history of coronary artery disease Chronic cholecystitis History of COVID-19 History of gastroesophageal reflux (GERD) Gallbladder disease History of cataract Hypertension Gallbladder sludge Hyperlipidemia Diabetes mellitus Chronic GERD Abdominal pain Surgical History History of laparoscopic cholecystectomy History of cataract surgery Hx of spinal fusion H/O rotator cuff surgery Social History Smoking Status: Never smoker alcohol intake: never substance use type: denies use current occupational status: other Travel in the last 8 weeks: None household members: family housing: house lives independently: No marital status: PM Subjective & Objective Subjective Subjective:: Patient is a pleasant 64-year-old male who presents today for follow-up bilateral SI injections on 04/16/2024. Today he rates his pain a 1 out of 10. He states that he has had at least 80% improvement and feels like it is still helping. Patient states the pain is definitely not as severe and much more manageable. He does state that he is not even had to use his topical and on some occasions he might take an Advil in the morning just to get it going however that is not continuously. Patient does have questions regarding the minimally invasive lumbar decompression. His Aaron has been reviewed and is appropriate. Review of Systems: General: No recent weight changes, no fever, no sleep disturbances Respiratory: No cough, no shortness of air, no recurring pulmonary infections Cardiovascular/peripheral vascular: No chest pain, no palpitations, no edema, no shortness of breath Gastrointestinal: No new onset incontinence, normal bowel movements reported Genitourinary: No new onset incontinence Musculoskeletal: Low back pain Psychiatric: [Normal mood/affect] Neurological: [Denies weakness in extremities], [denies balance issues] Pain at rest (0-10 scale): 1 Objective Objective:: Physical Exam: General: Alert and oriented x3, no acute distress, pleasant and cooperative Lungs: Respirations even and unlabored, symmetrical chest expansion Eyes: PERRL Musculoskeletal: Flexion and extension of lumbar spine within normal limit Neurological: Speech clear, no gross sensory deficit Has patient had previous pain injection?: Yes Percent improvement in pain since last injection: 80% Conservative treatment options previously tried: Home exercise plan Length of treatment: Longer than 12 weeks Meds Home Medications and Allergies Home Medications ?Medication ?Instructions ?Recorded ?Confirmed ?Type pen needle, diabetic 32 gauge x #10 ea 11/07/22 04/16/24 Rx 5/32 (Easy Comfort Pen [place]) empagliflozin 25 mg tablet See Rx Instructions .Route 03/28/24 04/16/24 Rx (Jardiance) .COMPLEX #90 tabs methocarbamol 750 mg tablet 750 mg PO TID #90 tabs 03/28/24 04/16/24 Rx pantoprazole 40 mg tablet,delayed 40 mg PO DAILY Reflux/Acid reflux 03/28/24 04/16/24 Rx release 90 days #90 tabs rosuvastatin 20 mg tablet See Rx Instructions .Route 03/28/24 04/16/24 Rx .COMPLEX #90 tabs semaglutide 0.25 mg or 0.5 mg (2 0.5 mg (0.736 mL) SQ WEEKLY 30 03/28/24 04/16/24 Rx mg/3 mL) subcutaneous pen injector days #3.68 mL (Ozempic) terazosin 5 mg capsule 5 mg PO DAILY 90 days #90 caps 04/10/24 04/16/24 Rx New Prescriptions to Start Prescriptions: Allergies Allergy/AdvReac Type Severity Reaction Status Date / Time No Known Allergies Allergy Verified 03/28/24 08:57 Assessment and Plan *Assessment and plan (1) Low back pain: Status: Acute Category: Medical Code(s): M54.50 - Low back pain, unspecified Plan Patient has had significant improvement following his SI injections and does not require any additional injection therapy at this time. I did review over the risk and benefits of the minimally invasive lumbar decompression and counseled him that I would start by ordering advanced imaging such as an MRI. Patient does state that he would like to wait at this time. We will follow-up with this at future visits. Patient will return to clinic in 6 weeks. Patient has been instructed to contact the clinic with any concerns before the next appointment. Dr. Lane has reviewed this note and agrees with this plan of care. This note was dictated using voice recognition software and make contain errors or omissions. All injections are used with Lidocaine, Bupivacaine and Depo Medrol. Occasionally urine drug screen is needed to verify patient's compliance with our office pain contract. This is ordered based off specific treatments related to chronic pain with the potential to abuse certain medications.
== END 2024-05-09 23:59 | disposition home or self-care (01) ==
LOC: SC.PAIN 13:01
PROVIDERS: PCP Family Medicine; Visit Provider Nurse Practitioner Family
DX: M54.50 Low back pain, unspecified (principal)
CPT/HCPCS: 99212; G0463

== ENCOUNTER 2024-06-20 13:32 | Outpatient (POV) | payer BC, SELFPAY ==
--- NOTE | 2024-06-20 13:57 | EXP.PAIN.SOA ---
[facility] Disclaimer: The information contained in this section may have been updated after the patient was seen, as this information can be updated by other users. Medical History Swelling of left parotid gland Sialadenitis Pharyngitis Family history of coronary artery disease Chronic cholecystitis History of COVID-19 History of gastroesophageal reflux (GERD) Gallbladder disease History of cataract Hypertension Gallbladder sludge Hyperlipidemia Diabetes mellitus Chronic GERD Abdominal pain Surgical History History of laparoscopic cholecystectomy History of cataract surgery Hx of spinal fusion H/O rotator cuff surgery Social History Smoking Status: Never smoker alcohol intake: never substance use type: denies use current occupational status: other Travel in the last 8 weeks: None household members: family housing: house lives independently: No marital status: PM Subjective & Objective Subjective Subjective:: Patient is a pleasant 64-year-old male who presents today for 6-week follow-up. Today he rates his pain a 1 out of 10. He states overall he is continue to do well. Patient states just recently he did play golf for 7 days in a roll with 196 holes and did not have his back flareup. He states he had a little bit but nothing that was unmanageable. Patient does state that during that timeframe of the golf he did have some right thumb and index finger numbness. He does believe that might have a nerve that is being pushed up against. He does state today that it has gotten a little bit better. His Aaron has been reviewed and is appropriate. Patient has been ordered compounded cream in the past. Review of Systems: General: No recent weight changes, no fever, no sleep disturbances Respiratory: No cough, no shortness of air, no recurring pulmonary infections Cardiovascular/peripheral vascular: No chest pain, no palpitations, no edema, no shortness of breath Gastrointestinal: No new onset incontinence, normal bowel movements reported Genitourinary: No new onset incontinence Musculoskeletal: Low back pain, right thumb and index finger numbness Psychiatric: [Normal mood/affect] Neurological: [Denies weakness in extremities], [denies balance issues] Pain at rest (0-10 scale): 1 Objective Objective:: Physical Exam: General: Alert and oriented x3, no acute distress, pleasant and cooperative Lungs: Respirations even and unlabored, symmetrical chest expansion Eyes: PERRL Musculoskeletal: Flexion and extension of lumbar [spine] within normal limit Neurological: Speech clear, no gross sensory deficit Has patient had previous pain injection?: No Conservative treatment options previously tried: Home exercise plan Length of treatment: Longer than 12 weeks Meds Home Medications and Allergies Home Medications ?Medication ?Instructions ?Recorded ?Confirmed ?Type pen needle, diabetic 32 gauge x #10 ea 11/07/22 05/09/24 Rx (Easy Comfort Pen [place]) empagliflozin 25 mg tablet See Rx Instructions .Route 03/28/24 05/09/24 Rx (Jardiance) .COMPLEX #90 tabs methocarbamol 750 mg tablet 750 mg PO TID #90 tabs 03/28/24 05/09/24 Rx pantoprazole 40 mg tablet,delayed 40 mg PO DAILY Reflux/Acid reflux 03/28/24 05/09/24 Rx release 90 days #90 tabs rosuvastatin 20 mg tablet See Rx Instructions .Route 03/28/24 05/09/24 Rx .COMPLEX #90 tabs terazosin 5 mg capsule 5 mg PO DAILY 90 days #90 caps 04/10/24 05/09/24 Rx hydrochlorothiazide 12.5 mg tablet 12.5 mg PO DAILY #90 tabs 05/09/24 Rx semaglutide 0.25 mg or 0.5 mg (2 0.5 mg (0.736 mL) SQ WEEKLY 05/23/24 Rx mg/3 mL) subcutaneous pen injector days #3.68 mL (Ozempic) New Prescriptions to Start Prescriptions: Allergies Allergy/AdvReac Type Severity Reaction Status Date / Time No Known Allergies Allergy Verified 03/28/24 08:57 Assessment and Plan *Assessment and plan (1) Low back pain: Status: Acute Category: Medical Code(s): M54.50 - Low back pain, unspecified Plan Patient continues to do well and does not require any additional injection therapy at this time. Patient will return to clinic in 3 months for reevaluation of symptoms and plan of care. Patient has been instructed to contact the clinic with any concerns before the next appointment. I did discuss with the patient I would recommend trying the compounded cream on his thumb and index finger and see if this does improve any of that numbness sensations he is experiencing. Dr. Lane has reviewed this note and agrees with this plan of care. This note was dictated using voice recognition software and make contain errors or omissions. All injections are used with Lidocaine, Bupivacaine and Depo Medrol. Occasionally urine drug screen is needed to verify patient's compliance with our office pain contract. This is ordered based off specific treatments related to chronic pain with the potential to abuse certain medications.
[2024-06-20 14:06] VITALS: BP 132/75; PULSE 73; RESP 14; O2SAT 97; BMI 29.5
--- OUTSIDE RECORDS SUMMARY | 2024-06-20 23:28 | XMS_ITS | Data Portability ---
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 PREOPERATIVE DIAGNOSIS: Recurrent left parotitis. POSTOPERATIVE DIAGNOSIS: Recurrent left parotitis. PROCEDURE: Left parotid salivary endoscopy. ANESTHESIA: General anesthesia. ESTIMATED BLOOD LOSS: None. COMPLICATIONS: None. FINDINGS: Left parotid salivary endoscopy with dilation and irrigation of Kenalog, but no other obvious stones or areas of stenosis seen. SURGEON: Mario Nevarez MD INDICATIONS: This is a gentleman with complaints of recurrent feeling of swelling and like there is a pocket in his left parotid gland. Preoperative workup and imaging studies have been unrevealing. As such, we discussed proceeding with a diagnostic salivary endoscopy. OPERATIVE NOTE: The patient was brought to the OR and laid in supine position. General anesthesia induced. Patient was prepped and draped in usual fashion. I identified the Stensen's duct papilla for his left parotid gland. It was gently dilated with the lacrimal duct probes from a 0000 up to the #4 probe. A conical dilator was then used to further enlarge the papilla. I then inserted a 1.1 mm salivary endoscope and was able to advance it back to the hilum of the parotid. There was no obvious stones or strictures seen. The gland was irrigated out with Kenalog. His mouth was then suctioned out. He was then turned back over to Anesthesia to be awoken. [email or web address] Not available 07/26/2023 14:05:25 11/09/2023 11/09/2023 We discussed the significance of elevated PSA. I explained that an elevated PSA does not necessarily mean the presence of prostate cancer, but that it should be further investigated with either a prostate ultrasound and biopsy or a repeat PSA. I explain the significance of a rising PSA, and the fact that there is not necessarily a certain value that would be considered normal in the face of an rising PSA. We discussed possible etiologies such as prostate cancer, infection, inflammation, benign prostatic hyperplasia. We discussed the option for prostate biopsy to rule out prostate cancer. Patient voices understanding. The risks, benefits, alternatives to procedure were discussed with the patient. Order provided for repeat PSA. Patient understands if PSA continues to rise recommendation for prostate biopsy. Alfuzosin for medical management of lower urinary symptoms. Not available 11/10/2023 16:49:25 12/05/2023 12/05/2023 SURGERY DATE: 12/05/2023 PREOPERATIVE DIAGNOSIS: Elevated PSA POSTOPERATIVE DIAGNOSIS: Elevated PSA PROCEDURE: 1. Transrectal ultrasound prostate, 2. Ultrasound guidance for needle injection of local analgesia, 3. Transrectal ultrasound guided needle biopsy of prostate SURGEON: Angie Tello MD ANESTHESIA: Local ESTIMATED BLOOD LOSS: <2 ml COMPLICATIONS: None. SPECIMENS: A total of 12 prostate biopsies were obtained from 6 locations - right apex, right mid gland, right base, left apex, left mid gland, left base INDICATIONS: Elevated PSA OPERATIVE NOTE: Patient was correctly identified in the preoperative holding area. Informed consent was obtained. He is taken to the operating room and positioned in lateral decubitus knee tuck position. All pressure points padded. Timeout procedure completed. He had taken oral antibiotics. Transrectal ultrasonography performed showing prostate width of 55.8 mm, height of 53.1 mm, length of 59.7 mm for prostatic volume of 93.6 cm?? with a PSA density of 0.05 based upon a PSA of 4.5. Transrectal ultrasound guidance for needle injection of local analgesia was performed at the prostate and seminal vesicle junction bilaterally and the prostate apex. Once this was allowed to take effect transrectal ultrasound needle biopsy of the prostate was performed in the above-mentioned locations. Once adequate specimens had been obtained from all locations the procedure was then completed. Transrectal ultrasound was removed and patient was taken to the recovery room. DISPOSITION: The patient tolerated the procedure well. He was taken to the recovery room in stable condition. He will be discharged home with instructions for outpatient follow up. [email or web address] Not available 12/12/2023 10:25:38 12/25/2023 12/25/2023 Pathology review ed with patient. Continue to monitor PSA trend. Silodosin for medical management of lower urinary symptoms. [email or web address] Not available 12/31/2023 12:34:52 Plan of Treatment Reminders Order Date Submit Date Provider Last Modified By Organization Details Last Modified Time Details Appointments None recorded. Lab urinalysis panel, auto 2023 024 [email or web address] 14 [facility], [address] [place] [address], [address], [place], [address], 16:15:12 PSA, total, serum or plasma 2023 024 [facility], [address] [place] [address], [address], 22:05:53 urinalysis panel, auto 2023 024 [email or web address] 14 [facility] [place] [facility], [address] [place] [address] [address], [place], [address], 16:48:02 Referral None recorded. Procedures None recorded. Surgeries None recorded. Imaging None recorded. Medication Orders silodosin 8 mg capsule 2023 024 [facility], [address] [place], [address], 16:17:34 alfuzosin ER 10 mg tablet,exte nded release 24 hr 2023 024 [email or web address] [facility], [address] [place], [address], 16:46:15 cefdinir 300 mg capsule 2023 024 N[facility]IN [facility], [facility] [place], [address], 12:36:40 ondansetron 4 mg disintegrat ing tablet 2023 024 N[facility]IN [facility], [address] [place], [address], 16:21:59 Patient TargetsNo targets recorded. Patient Instructions Encounter Date Encounter Id Patient Instructions Last Modified By Organization Details Last Modified Time 11/09/2023 [id number] learning about healthy weight [email or web address] Not available 11/10/2023 16:48:00 Reason for Referral None Reported. Results Created Date Observation Date Name Description Value Unit Range Abnormal Flag Note LastModifiedBy Organization Detail LastModifiedTime 11/10/1911/10/2023 urina lysis panel , auto Unknown Analyte Clean Catch Not Available [facility] [place] [facility] [address], [place], [address], 11/10/2023 12:43:07 11/10/19 24 11/10/2023 urina lysis panel , auto Unknown Analyte Yellow Not Available [facility] With [address] [place], [address], 11/10/2023 12:43:07 11/10/19 24 11/10/2023 urina lysis panel , auto Unknown Analyte Clear Not Available [facility] With [address] [place], [address], 11/10/2023 12:43:07 11/10/19 24 11/10/2023 urina lysis panel , auto Unknown Analyte 1.010 Not Available [facility] With [address] [place], [address], 11/10/2023 12:43:07 11/10/19 24 11/10/2023 urina lysis panel , auto Unknown Analyte 1.003- 1.035 Not Available [facility] With [address], [place], [address], 11/10/2023 12:43:07 11/10/19 24 11/10/2023 urina lysis panel , auto Unknown Analyte 5.0 Not Available [facility] With [address] [place], [address], 11/10/2023 12:43:07 11/10/19 24 11/10/2023 urina lysis panel , auto Unknown Analyte 5.0-8. 0 Not Available [facility] With [address] [place], [address], 11/10/2023 12:43:07 11/10/19 24 11/10/2023 urina lysis panel , auto Unknown Analyte Negati ve Not Available [facility] With [address], [place], [address], 11/10/2023 12:43:07 11/10/19 24 11/10/2023 urina lysis panel , auto Unknown Analyte Negati ve Not Available [facility] With [address] [place], [address], 11/10/2023 12:43:07 11/10/19 24 11/10/2023 urina lysis panel , auto Unknown Analyte Negati ve Not Available [facility] With [address] [place], [address], 11/10/2023 12:43:07 11/10/19 24 11/10/2023 urina lysis panel , auto Unknown Analyte Negati ve Not Available [facility] With [address] [place], [address], 11/10/2023 12:43:07 11/10/19 24 11/10/2023 urina lysis panel , auto Unknown Analyte Negati ve Not Available [facility] With [address] [place], [address], 11/10/2023 12:43:07 11/10/19 24 11/10/2023 urina lysis panel , auto Unknown Analyte Negati ve Not Available [facility] With [address] [place], [address], 11/10/2023 12:43:07 11/10/19 24 11/10/2023 urina lysis panel , auto Unknown Analyte >1000 mg/dl Not Available [facility] With [address] [place], [address], 11/10/2023 12:43:07 11/10/19 24 11/10/2023 urina lysis panel , auto Unknown Analyte Normal Not Available [facility] With [address] [place], [address], 11/10/2023 12:43:07 11/10/19 24 11/10/2023 urina lysis panel , auto Unknown Analyte Negati ve Not Available [facility] With [address] [place], [address], 11/10/2023 12:43:07 11/10/19 24 11/10/2023 urina lysis panel , auto Unknown Analyte Negati ve Not Available [facility] With [address] [place], [address], 11/10/2023 12:43:07 11/10/19 24 11/10/2023 urina lysis panel , auto Unknown Analyte Normal Not Available [facility] With [address], [place], [address], 11/10/2023 12:43:07 11/10/19 24 11/10/2023 urina lysis panel , auto Unknown Analyte Normal 1 mg/dl Not Available [facility] With [address], [place], [address], 11/10/2023 12:43:07 11/10/19 24 11/10/2023 urina lysis panel , auto Unknown Analyte Negati ve Not Available [facility] With [address] [place], [address], 11/10/2023 12:43:07 11/10/19 24 11/10/2023 urina lysis panel , auto Unknown Analyte Negati ve Not Available [facility] With [address], [place], [address], 11/10/2023 12:43:07 11/10/19 24 11/10/2023 urina lysis panel , auto Unknown Analyte Negati ve Not Available [facility] With [address], [place], [address], 11/10/2023 12:43:07 11/10/19 24 11/10/2023 urina lysis panel , auto Unknown Analyte Negati ve Not Available [facility] With [address], [place], [address], 11/10/2023 12:43:07 12/05/19 24 12/05/2023 SURGI RICHARD surgical SEE BELOW normal Depar tment of Patho logy Surgi richard Patho logy Repor t NAME: REYNA BERNARD PATH. :SS-2 16 Copy to: Diagn osis: Prost ate needl e core biops ies: A) Left base: Benig n prost atic tissu e. B) Left mid: Benig n prost atic tissu e. C) Left apex: Benig n prost atic tissu e. D) Right base: Benig n prost atic tissu e. E) Right mid: Benig n prost atic tissu e. F) Right apex: Benig n prost atic tissu e. SOURC E OF SPECI MEN: PROST ATE BIOPS Y, A) LEFT BASE B) LEFT MID PROST ATE BIOPS Y, C) LEFT APEX D) RIGHT BASE PROST ATE BIOPS Y, E) RIGHT MID F) RIGHT APEX CLINI RICHARD INFOR MATIO N: R97.2 0 Gross Descr iptio n: Recei lurdes in forma charanjit label ed with the patie nt's name are six separ ate speci mens desig nated as prost ate biops y. All tissu e consi sts of hunt cylin ders 0.[address] If tissu e from two sites is place d in one casse tte, the latte r site is inked black ; e.g. if tissu es from site A and B are in one casse tte, the tissu es from site B are inked . SECTI ON LENGT H IN CENTI METER S A) Left Base 0.2, (2) 1.5 cm (3 cores ) B) Left Mid 0.4, 1.6, 1.9 cm (3 cores ) C) Left Alexander 0.2, 1.5, 1.9 cm (3 cores ) D) Right Base 0.2, 1.3, 1.5 cm (3 cores ) E) Right Mid 1.5, 1.6 cm (2 cores ) F) Right Alexander 1.1, 1.5 cm (2 cores ) 12/04 08:23 PM Micro scopi c Descr iptio n: A micro scopi c exami natio n has been perfo rmed and the resul t(s) are as noted above . SEJAL MALONEY M.D. Laverne gaming Out Date: 12/05 13:49 Page 1 of 1 Not Available [facility] [address], [place], [address], 12/06/2023 13:49:47 12/25/1912/25/2023 urina lysis panel , auto Unknown Analyte Clean Catch Not Available [facility] [address], [place], [address], 12/25/2023 16:01:50 12/25/1912/25/2023 urina lysis panel , auto Unknown Analyte Yellow Not Available [facility] [address], [place], [address], 12/25/2023 16:01:50 12/25/1912/25/2023 urina lysis panel , auto Unknown Analyte Clear Not Available [facility] [address], [place], [address], 12/25/2023 16:01:50 12/25/1912/25/2023 urina lysis panel , auto Unknown Analyte 1.005 Not Available [facility] [address], [place], [address], 12/25/2023 16:01:50 12/25/1912/25/2023 urina lysis panel , auto Unknown Analyte 5.0 Not Available [facility] [address], [place], [address], 12/25/2023 16:01:50 12/25/1912/25/2023 urina lysis panel , auto Unknown Analyte Negati ve Not Available [facility] [address], [place], [address], 12/25/2023 16:01:50 12/25/1912/25/2023 urina lysis panel , auto Unknown Analyte Negati ve Not Available [facility] [address], [place], [address], 12/25/2023 16:01:50 12/25/1912/25/2023 urina lysis panel , auto Unknown Analyte Negati ve Not Available [facility] [address], [place], [address], 12/25/2023 16:01:50 12/25/1912/25/2023 urina lysis panel , auto Unknown Analyte >1000 mg/dl Not Available [facility] [address], [place], [address], 12/25/2023 16:01:50 12/25/1912/25/2023 urina lysis panel , auto Unknown Analyte Negati ve Not Available [facility] [address], [place], [address], 12/25/2023 16:01:50 12/25/1912/25/2023 urina lysis panel , auto Unknown Analyte Normal Not Available [facility] [address], [place], [address], 12/25/2023 16:01:50 12/25/1912/25/2023 urina lysis panel , auto Unknown Analyte Negati ve Not Available [facility] [address], [place], [address], 12/25/2023 16:01:50 12/25/19 24 12/25/2023 urina lysis panel , auto Unknown Analyte Negati ve Not Available [facility] [address], [place], [address], 12/25/2023 16:01:50 Result Notes None recorded. Problems No Known Problems Procedures Surgical History Date Name Laterality Status Provider Name and Address Organization Details Recorded Time Cholecystectomy completed [facility] 11/10/2023 12:41:36 Prostate Surgery completed [facility] 11/10/2023 12:41:55 Neck Surgery completed [facility] 11/10/2023 12:42:07 Imaging Results None recorded. Procedure Notes None recorded. Medical Equipment None Reported. Allergies No known drug allergies Medications Name Sig Start Date Stop Date Status Note LastModified by Organization Details LastModified Time prednison e 10 mg tablets in a dose pack TAKE DIRECTED active Not Available Not Available No t Available methocarb kyung 750 mg tablet active Not Available Not Available No t Available terazosin 2 mg capsule active Not Available Not Available Not Available amlodipin e 10 mg tablet active Not Available Not Available Not Available pantopraz ole 40 mg tablet,de layed release active Not Available Not Available Not Available Cipro 500 mg tablet Take 1 tablet every 12 hours by oral route for 3 days. 2023 active Not Available Not Available Not Avai lable hydrochlo rothiazid e 25 mg tablet active Not Available Not Available Not Available ondansetr on 4 mg disintegr ating tablet Place 1 tablet(s ) by translin gual route every 8 hours as needed for nausea. active Not Available Not Available No t Available cefdinir 300 mg capsule Take 1 capsule every 12 hours by oral route for 7 days. 11/09 completed Not Available Not Available Not Available rosuvasta tin 20 mg tablet active Not Available Not Available Not Available alfuzosin ER 10 mg tablet,ex tended release 24 hr Take 1 tablet every day by oral route for 90 days. 2023 active Not Available Not Available Not Avai lable Advil As Directed active Frequenc y: as direct.; Medicati on Descript ion: ibuprofe n; Route:or al; refills: 0 Not Available Not Available Not Available Tylenol active Medicati on Descript ion: acetamin ophen; refills: 0 Not Available Not Available Not Available silodosin 8 mg capsule Take 1 capsule every day by oral route for 90 days. 2023 active Not Available Not Available Not Avai lable Jardiance 25 mg tablet active Not Available Not Available Not Available Ozempic 0.25 mg or 0.5 mg (2 mg/3 mL) subcutane ous pen injector active Not Available Not Available Not Available Vitals Date Recorded Body height Body mass index (BMI) Body weight Provider Name and Address Organization Details Last Updated DateTime 11/09/2023 165.1 cm 34.1 kg/m2 26832.44 [facility] 11/10/2023 12:34:56 Date Recorded Body height Body mass index (BMI) Body weight Provider Name and Address Organization Details Last Updated DateTime 12/25/2023 165.1 cm 34.1 kg/m2 08552.44 g Josiane Mendosa [facility] 12/25/2023 16:01:41 Social History Question Answer Notes LastModified by Organizat ion Details LastModified Time Tobacco Smoking Status Never Smoker Ellis Hernandez [facility] 11/10/2023 12:41:19 What Is Your Level Of Alcohol Consumption? None Information not available 11/10/2023 What Was The Date Of Your Most Recent Tobacco Screening? 11/10/2023 Information not available 11/10/2023 Sex: Male Functional Status None recorded. Mental Status None recorded. Family History Relationship Description Onset Age of this Age Resolved Age Notes LastModified by Organization Details LastModified Time Father No current problems or disability [email or web address] Not available 11/09 12:41:06 Mother No current problems or disability [email or web address] Not available 11/09 12:41:06 Medical History Condition Response Diabetes Y Hypertension Y Past Encounters Encounter ID Performer Location Encounter Start Date Encounter Closed Date Diagnosis/Indication Diagnosis SNOMED-CT Code Diagnosis ICD10 Code Diagnosis Note [id number] MARIO NEVAREZ MD SURGERY SCHEDULE [address] [place] [address] 07/25/2023 08:54:53 07/25/2023 08:56:27 Localized swelling, mass and lump, neck 253635711 R22.1 [id number] ANGIE TELLO MD [facility] [address] [facility],[place] [address] 11/09/2023 14:44:57 11/10/2023 16:44:34 Prostate specific antigen above reference range 340373875 R97.20 Benign pro static hyperplasia with outflow obstruction 233195037 N40.1 [id number] ANGIE TELLO MD SURGERY SCHEDULE [address] [place] [address] 12/05/2023 13:34:29 12/05/2023 13:35:29 [id number] ANGIE TELLO MD [facility] [address] [facility] [place] [address] 12/25/2023 15:24:39 12/25/2023 16:20:02 Prostate specific antigen above reference range 346624026 R97.20 Benign pro static hyperplasia with outflow obstruction 463862314 N40.1 Health Concerns Section Related Observation LastModified by Organization Detai ls LastModified Time None Recorded Concern Status LastModified by Organization Details LastModified Time None Recorded Advance Directives Directive None Recorded Payers Encounter Date Sequence Insurance Name Policy Number Policy Hutchins Covered Member ID Hutchins Member ID Guarantor Name 07/25/2023 1 [employer] (POS) [id number] Joseph Haider [id number] Joseph Haider 11/09/2023 1 [employer] (POS) [id number] Joseph Haider [id number] Joseph Haider 12/05/2023 1 [place] [id number] Tracy Haider [id number] Joseph Haider 12/25/2023 1 [place] [id number] Tracy Haider [id number] Joseph Shen Vitaly Notes Date Note Type Note Provider Name and Address Organization Details Recorded Time 11/09/2023 text/html 63-year-old male in the office for my initial evaluation and for discussion of elevated PSA. PSA from April 2023 was 4.1. No hesitancy. Daytime frequency every 2 hours. Nocturia 4-5 times. No gross hematuria. Occasional dysuria. No family history of prostate malignancy. ANGIE TELLO MD [address] [place] [address], [address], [facility] 11/10/2023 16:49:56 12/25/2023 text/html 63-year-old male in the office for follow-up evaluation and for discussion of elevated PSA status post prostate biopsy. Prostate biopsy pathology showing benign tissue. PSA from October 2023 is 4.5. No family history of prostate malignancy. He is currently taking alfuzosin. No hesitancy. No urgency. Daytime frequency every 2 hours. Nocturia 3-4 times. No gross hematuria. No dysuria. ANGIE TELLO MD [address] [place] [address], [address], [facility] 12/31/2023 12:35:07
== END 2024-06-20 23:59 | disposition home or self-care (01) ==
LOC: SC.PAIN 13:32
PROVIDERS: PCP Family Medicine; Visit Provider Nurse Practitioner Family
DX: M54.50 Low back pain, unspecified (principal); Z79.85 Long-term (current) use of injectable non-insulin antidiabetic drugs; Z79.84 Long term (current) use of oral hypoglycemic drugs
CPT/HCPCS: 99212; G0463

== ENCOUNTER 2024-07-11 13:07 | Outpatient (CLI) | payer BC, SELFPAY ==
--- NOTE | 2024-07-11 13:15 | XR_ITS ---
FINAL REPORT CLINICAL HISTORY: Right hand pain and numbness. COMPARISON: None FINDINGS: RIGHT HAND Three views demonstrate no acute fracture or dislocation. The visualized joint spaces are normally aligned. There is a 2 mm ossific density in the medial margin of the fourth metacarpophalangeal joint. This appears to be a chronic intra-articular loose body. IMPRESSION: No acute bony abnormality. Reviewed, Interpreted and Dictated by Dmitry Garza MD Transcribed by Promise Small Authenticated and [facility]
== END 2024-07-11 23:59 | disposition home or self-care (01) ==
LOC: LAB 13:08 → RAD 13:15
PROVIDERS: PCP Family Medicine; Visit Provider Physician Assistant Surgical
DX: M79.641 Pain in right hand (principal); M24.041 Loose body in right finger joint(s)
CPT/HCPCS: 73130

== ENCOUNTER 2025-02-17 08:42 | Outpatient (RCR) | payer BC, SELFPAY | END 2025-02-17 23:59 | disposition home or self-care (01) | LOC: PT.CARL 08:42 | PROVIDERS: PCP Family Medicine; Visit Provider Family Medicine | DX: M75.22 Bicipital tendinitis, left shoulder (principal); M25.512 Pain in left shoulder; M25.531 Pain in right wrist | CPT/HCPCS: 97161 ==